=== PATIENT | male | born 1965 | race Two or more races ===

== ENCOUNTER 2023-06-17 11:29 | Outpatient (REF) | payer OTHER, SELFPAY ==
--- NOTE | ~2023-06-17 | XR_ITS ---
EXAMINATION: XR ABDOMEN KUB CLINICAL INDICATION: Pain; question calculus. COMPARISON: CT abdomen and pelvis dated 06/20/2023. TECHNIQUE: 2 AP views of the abdomen and pelvis are submitted. FINDINGS: The bowel gas pattern is normal with no evidence of ileus or obstruction. 2 4 mm calculi are seen at the interpolar right kidney. At the lower pole of the left kidney, a 2.2 x 1.2 cm aggregation of calculi is seen. Of note, imaging is significantly limited by overlapping bowel contents. Multiple pelvic phleboliths are seen. There is no acute osseous abnormality. XR/XR KUB IMPRESSION: Bilateral renal calculi are seen, as detailed.
== END 2023-06-17 11:30 | disposition home or self-care (01) ==
LOC: HO.XRAY 11:29
PROVIDERS: PCP Internal Medicine; Visit Provider Internal Medicine
DX: R10.9 Unspecified abdominal pain (principal)
CPT/HCPCS: 74018

== ENCOUNTER 2023-06-20 11:32 | Emergency (ER) | payer OTHER, SELFPAY ==
--- NOTE | ~2023-06-20 | CT_ITS ---
EXAMINATION: CT ABDOMEN AND PELVIS WITHOUT CONTRAST CLINICAL INFORMATION: Pelvic discomfort. Urinary discomfort. COMPARISON: Abdominal radiograph dated 06/17/2023. TECHNIQUE: Multidetector volumetric imaging was performed from the superior aspect of the liver through the pubic symphysis. Sagittal and coronal reformatted images were obtained on the technologist's workstation. This CT examination was performed using dose optimization techniques as appropriate, variously including the following: *Automated exposure control. *Adjustment of mA and/or kV according to patient size (this includes techniques or standardized protocols for targeted exams where dose is matched to indication/reason for exam; i.e. extremities or head). *Use of iterative reconstruction technique. DLP: 575 mGy-cm FINDINGS: LUNG BASES: The visualized lung bases are unremarkable. LIVER, GALLBLADDER, AND BILIARY TREE: The liver is normal in size, shape, and attenuation. No focal hepatic lesion or biliary ductal dilatation is present. The gallbladder is unremarkable with no evidence of radiopaque gallstones, gallbladder wall thickening, or obvious pericholecystic inflammatory changes. PANCREAS: Unremarkable. SPLEEN: Unremarkable. ADRENAL GLANDS: Right adrenal nodule measuring up to 2.1 x 2.8 x 1.9 cm with areas of macroscopic fat, soft tissue, and calcification. Given calcification, findings are likely benign and no follow-up imaging is recommended. KIDNEYS AND URETERS: The kidneys are normal in size, shape, and attenuation. Multiple bilateral renal stones measuring up to 0.4 cm within the anterior mid/lower pole of the right kidney and 1.6 x 0.8 cm within the midpole of the left kidney. The largest stone measures up to 1362 Hounsfield units and is located approximately 2.7 cm from the posterior axillary line. No ureteral stone. No hydronephrosis or hydroureter. BLADDER: No wall thickening or inflammatory change. Partially distended. GASTROINTESTINAL TRACT: No small or large bowel obstruction. No bowel wall thickening or inflammatory change. Unremarkable appendix. PERITONEAL CAVITY: No intra-abdominal free air or free fluid. ABDOMINAL WALL: No significant hernia is appreciated. LYMPH NODES: No significant lymphadenopathy. VASCULAR: No abdominal aortic dilatation. Unremarkable IVC. PELVIC VISCERA: Severe prostatomegaly with mass effect on the posteroinferior urinary bladder. This measures up to 7.9 cm in craniocaudal dimension. OSSEOUS STRUCTURES: Unremarkable. CT/CT abdomen pelvis wo IV con IMPRESSION: 1. Multiple bilateral renal stones measuring up to 0.4 cm on the right and 1.6 cm on the left. No ureteral stone. No hydronephrosis or hydroureter. Unremarkable urinary bladder. 2. Severe prostatomegaly with mass effect on the posteroinferior urinary bladder. 3. Right adrenal nodule measuring up to 2.8 cm with areas of macroscopic fat, soft tissue, and calcification. Given calcification, findings are likely benign and no follow-up imaging is recommended. Fleischner guidelines were followed.
--- NOTE | 2023-06-20 12:14 | ED.GENADULT ---
HPI - General Adult General Chief complaint: General Medical Stated complaint: Issues using bathroom Time Seen by Provider: 06/20/23 17:51 History of Present Illness HPI narrative: The patient is a 57-year-old male who says that he has had difficulty with urination for about 3 weeks. He feels pain with urination. He has had a weak urinary stream. He has never had difficulty urinating before. He has had no fevers. He denies back pain or flank pain. No penile discharge. No new sexual partners. He had been having constipation and was prescribed lactulose. He had a bowel movement yesterday. The patient has a history of type 2 diabetes. Currently his diabetic medication is only Rybelsus (semaglutide). He says he stopped taking this medication a couple of weeks ago when he started having these urinary symptoms. He says he has been on this medication for some time and it is not clear why he stopped taking it. The patient has had a kidney stone in the past. He does not feel that he has any flank pain similar to his kidney stone pain in the past. He says that he has had a urinary catheter once in his life. This was when he had a stroke about 6 or 7 years ago. He was treated in [place] at that time. No fever, sweats, chills. He has not had any sexual encounters in a long long time. Related Data Allergies Allergy/AdvReac Type Severity Reaction Status Date / Time No Known Allergies Allergy Verified 06/20/23 12:14 Review of Systems Review of Systems: Yes all other systems are reviewed and are negative [facility] Social History Social History Smoked in Last 30 Days: Yes Use of substances other than those prescribed or required for medical reasons: Yes Substance Use Type: Marijuana Substance Use Frequency: Occasionally Advance Directives: No Advance Directives Information Provided: No Physical Exam ED Vital Signs: Vital Signs - 24 hr 06/20/23 12:15 06/20/23 18:44 06/20/23 19:45 Temperature 96.8 F 97.8 F 98.2 F Pulse Rate 72 64 68 Respiratory Rate 18 18 17 Blood Pressure 167/93 H 135/85 115/81 Pulse Oximetry 98 98 97 Oxygen Delivery Method Room Air Room Air Room Air BMI result Body Mass Index 27.8 Const Other: The patient is awake and alert. He does not appear in obvious discomfort or distress. HENMT Other: The face is symmetrical. ?Mucous membranes moist. Eyes Other: Pupils are round equal, conjunctivae are clear, extraocular movements intact Neck Other: No JVD Resp Effort & Inspection: normal respiratory effort Auscultation: clear to auscultation bilaterally Cardio Rate: regular rate Rhythm: regular rhythm Heart sounds: S1 normal heart sound present and S2 normal heart sound present GI Other: The abdomen is soft and nontender. There is no obvious suprapubic tenderness. No significant prostatic tenderness Other: External genitalia unremarkable. Back/Spine/Pelvis Other: No CVA percussion tenderness Skin Other: Skin is dry and unremarkable Neuro Other: The patient is awake, alert, pleasant, cooperative. He seems grossly neurologically intact Extrem Other: No peripheral edema Course Course Course Narrative: This is a rapid medical exam: Additional HPI, ROS, PE not included below will be deferred to primary provider. Patient is a 57-year-old male presenting to the emergency department with complaint of difficulty urinating as well as with bowel movements for the past 3 weeks. Reports intermittent penile/urethral pain not necessarily related to urination. Denies fevers or other abnormal penile discharge. Denies any new sexual partners. Saw PCP and had an x-ray but states PCP has not received the results yet, reports hematuria was found on urinalysis Saturday. PCP prescribed lactulose. Reports last normal BM was yesterday. States pain is worse with sitting. Plan: UA, CT NG urine Medications Administered Discontinued Medications Generic Name Dose Route Start Last Admin Trade Name Freq PRN Reason Stop Dose Admin Sodium Chloride 1,000 mls @ 999 mls/hr 06/20/23 20:15 06/20/23 21:36 Ns IV 06/20/23 21:15 999 mls/hr .Q1H1M BRYAN Administration Phenazopyridine HCl 200 mg 06/20/23 22:27 06/20/23 22:33 Phenazopyridine Hcl 200 Mg Tablet PO 06/20/23 22:28 200 mg ONCE ONE Administration Tamsulosin HCl 0.4 mg 06/20/23 22:27 06/20/23 22:33 Tamsulosin Hcl 0.4 Mg Capsule PO 06/20/23 22:28 0.4 mg ONCE ONE Administration Medical Decision Making Medical Decision Making [facility] Narrative: The patient is a very pleasant 57-year-old with a history of type 2 diabetes who presents with what he describes his 3 weeks of difficulty urinating. He has had no fever, sweats, chills. No nausea or vomiting. No flank pain. He has had no sexual contacts. The patient does not seem toxic or ill. Postvoid residual on bladder scan was 300 mL. Urinalysis shows no signs of infection. His prostatic exam does not suggest prostatitis. His blood work does not suggest any infectious process. I performed a bedside ultrasound that showed a mildly full bladder with what I thought was probably a large prostate. A noncontrast CT scan of the abdomen and pelvis was obtained that showed significant prostatomegaly. I suspect that all of the patient's symptoms are probably related to his prostatomegaly. However I do not feel he is in significant urinary retention and I do not feel a catheter is indicated. The patient will be discharged with a prescription for tamsulosin to see if this eases his symptoms at all and he should follow up with Urology. The patient's blood sugar was 500. I think this is because he says he has not taken his semaglutide for a couple of weeks. He is willing to resume this medication. The patient will therefore be discharged with prescription for tamsulosin and instructions to resume his semaglutide. His blood sugar improved with 1 L of IV saline. His plan of care after fluids was 373. He should follow up with his regular doctor and also he should contact the urology office Lab Data 06/20/23 19:43 06/20/23 19:43 Labs: Lab Results 06/20/23 06/20/23 Range/Units 18:43 19:43 WBC 10.1 (4.8-10.8) X10*3/uL RBC 4.30 L (4.60-5.80) X10*6/uL Hgb 13.0 L (14.0-18.0) g/dl Hct 38.5 L (42.0-52.0) % MCV 89.5 (80.0-98.0) fL MCH 30.2 (27.0-33.0) pg MCHC 33.8 (31.0-36.0) g/dl RDW 13.2 (11.0-16.0) % Plt Count 242 (160-400) X10*3/uL MPV 10.4 (9.4-12.4) fL Immature Gran % (Auto) 0.4 (0.0-0.4) % Neut % (Auto) 62.9 (45-73) % Lymph % (Auto) 27.6 (20-40) % [place] % (Auto) 6.5 (2-11) % Eos % (Auto) 2.0 (0-4) % Baso % (Auto) 0.6 (0-2) % Lymph # (Auto) 2.8 (1.2-4.9) X10*3/uL [place] # (Auto) 0.7 (0.1-1.2) X10*3/uL Eos # (Auto) 0.2 (0.0-0.4) X10*3/uL Baso # (Auto) 0.1 (0.0-0.2) X10*3/uL Abs Immat Gran (auto) 0.04 H (0.00-0.03) X10*3/uL Absolute Neuts (auto) 6.3 (2.0-8.3) x10*3/uL Absolute Nucleated RBC 0.000 (0.0-0.012) X10*3/uL Nucleated RBC % (auto) 0.0 (0.0-0.2) /100WBC Sodium 137 (135-145) mmol/L Potassium 4.2 (3.3-5.1) mmol/L Chloride 102 (96-108) mmol/L Carbon Dioxide 24 (22-29) mmol/L Anion Gap 15 (12-20) BUN 16 (9-16) mg/dL Creatinine 1.60 H (0.5-1.4) mg/dL Estim Creat Clear Calc 59.3 Estimated GFR 45 Random Glucose 501 H* (60-115) mg/dL Calcium 9.9 (8.4-10.2) mg/dL Total Bilirubin 0.3 (0.0-1.0) mg/dL Direct Bilirubin 0.1 (0.0-0.5) mg/dL AST 27 (5-37) U/L ALT 28 (0-40) U/L Alkaline Phosphatase 139 H (39-117) U/L C-Reactive Protein < 0.10 (< or = 0.50) mg/dL Total Protein 6.9 (6.5-8.0) g/dL Albumin 4.0 (3.5-5.0) g/dL Urine Color Yellow Urine Appearance Clear Urine pH 5.5 (5.0-9.0) Ur Specific [place] >= 1.030 H (1.005-1.025) Urine Protein Negative (Neg-Trace) mg/dL Urine Glucose (UA) >=1000 H (Negative) mg/dL Urine Ketones 15 (Negative) mg/dL Urine Blood Negative (Negative) Urine Nitrite Negative (Negative) Ur Leukocyte Esterase Negative (Negative) Urine RBC 0-2 (0-2) /HPF Urine WBC 0-5 (0-5) /HPF Ur Squamous Epith Cells 0-2 (0-2) /HPF Urine Bacteria None Seen (None Seen) Hyaline Casts 0-2 (0-2) /LPF Discharge Plan Discharge Clinical Impression: Dysuria, Enlarged prostate, Hyperglycemia due to type 2 diabetes mellitus Patient Disposition: Home, Self-Care Instructions: Enlarged Prostate (BPH) (ED) Additional Instructions: I believe your symptoms are likely related to enlargement of your prostate gland. There is no suggestion of an infection. I have sent a prescription for medication called tamsulosin (also known as Flomax). Please plan on taking this medication once a day at bedtime. Equally importantly please contact the urology office in the morning for a prompt follow-up appointment to discuss these symptoms further. Also contact your regular doctor to discuss your glucose levels. Please resume your diabetic medication. If at any point your significantly worse please return to the emergency room. Referrals: Srinivasan Trotter MD [Physician] - (Prostatomegaly, prostatism) Ming Redman MD [Primary Care Provider] - (Hyperglycemia, prostatism)
[2023-06-20 12:15] VITALS: BP 167/93; PULSE 72; RESP 18; TEMP 36; O2SAT 98; BMI 27.8
[2023-06-20 18:44] VITALS: BP 135/85; PULSE 64; RESP 18; TEMP 36.6; O2SAT 98
[2023-06-20 18:52] LABS: Appearance Urine Clear; Color Urine Yellow; Glucose Urine UA >=1000 mg/dL (Negative); Leukocyte Esterase Urine Negative (Negative); Nitrite Urine Negative (Negative); PH 5.5 (5.0-9.0); Specific Gravity - Urine >= 1.030 (1.005-1.025); UMIC TRIGGER UACC YES; Urine Blood Negative (Negative); Urine Ketones 15 mg/dL (Negative); Urine Protein Negative (Neg-Trace)
[2023-06-20 19:23] LABS: Bacteria Urine None Seen (None Seen); Hyaline Casts Urine 0-2 /LPF (0-2); RBC Urine 0-2 /HPF (0-2); Squamous Epithelial Cell Urine 0-2 /HPF (0-2); WBC Urine 0-5 /HPF (0-5)
[2023-06-20 19:45] VITALS: BP 115/81; PULSE 68; RESP 17; TEMP 36.8; O2SAT 97
[2023-06-20 19:47] LABS: MANUAL DIFF FLAG NO
[2023-06-20 19:49] LABS: Basophils Absolute Auto 0.1 X10*3/uL (0.0-0.2); Basophils Percent Auto 0.6 % (0-2); Eosinophils Absolute Auto 0.2 X10*3/uL (0.0-0.4); Hematocrit 38.5 % (42.0-52.0); Imm Gran Abs Auto 0.04 X10*3/uL (0.00-0.03); Imm Gran Pct Auto 0.4 % (0.0-0.4); Lymphocytes Absolute Auto 2.8 X10*3/uL (1.2-4.9); Lymphocytes Percent Auto 27.6 % (20-40); Mean Corpuscular HGB Conc 33.8 g/dl (31.0-36.0); Mean Corpuscular Hemoglobin 30.2 pg (27.0-33.0); Mean Corpuscular Volume 89.5 fL (80.0-98.0); Mean Platelet Volume 10.4 fL (9.4-12.4); Monocytes Absolute Auto 0.7 X10*3/uL (0.1-1.2); Monocytes Percent Auto 6.5 % (2-11); Neutrophils Absolute Auto 6.3 x10*3/uL (2.0-8.3); Neutrophils Percent Auto 62.9 % (45-73); Platelet Count 242 X10*3/uL (160-400); Red Cell Distribution Width 13.2 % (11.0-16.0); White Blood Count 10.1 X10*3/uL (4.8-10.8)
[2023-06-20 20:02] LABS: Alanine Aminotransferase 28 U/L (0-40); Alkaline Phosphatase 139 U/L (39-117); Anion Gap 15 (12-20); Aspartate Amino Transferase 27 U/L (5-37); Bilirubin Direct 0.1 mg/dL (0.0-0.5); Bilirubin Total 0.3 mg/dL (0.0-1.0); Blood Urea Nitrogen 16 mg/dL (9-16); C Reactive Protein < 0.10 mg/dL (< or = 0.50); Calcium 9.9 mg/dL (8.4-10.2); Carbon Dioxide 24 mmol/L (22-29); Chloride 102 mmol/L (96-108); Creatinine Clr Calc Pharmacy 59.3; Estimated Glomerular Filt Rate 45; Glucose Random 501 mg/dL (60-115); Potassium 4.2 mmol/L (3.3-5.1); Sodium 137 mmol/L (135-145); Total Protein 6.9 g/dL (6.5-8.0)
[2023-06-20] MEDS: 0.9 % Sodium Chloride 1,000 ML 999 ML IV (21:36)
[2023-06-20] MEDS: Phenazopyridine HCL 200 MG TABLET PO (22:33)
[2023-06-20] MEDS: Tamsulosin HCL 0.4 MG CAPSULE PO (22:33)
[2023-06-20 22:57] LABS: Glucose, Whole Blood 373 mg/dL (60-115)
[2023-06-21 02:47] LABS: CT PCR NOT DETECTED (Not Detect.); NG PCR NOT DETECTED (Not Detect.)
== END 2023-06-20 23:38 | disposition home or self-care (01) ==
PROVIDERS: Registered Nurse Emergency; Emergency Provider Emergency Medicine; PCP Internal Medicine
DX: R30.0 Dysuria (principal); E11.65 Type 2 diabetes mellitus with hyperglycemia; N40.0 Benign prostatic hyperplasia without lower urinary tract symptoms; Z86.73 Personal history of transient ischemic attack (TIA), and cerebral infarction without residual deficits; Z87.442 Personal history of urinary calculi
CPT/HCPCS: 0353U; 36415; 74176; 80048; 80076; 81001; 81003; 82947; 85025; 86140; 99284; 99285

== ENCOUNTER 2023-07-04 18:25 | Emergency (ER) | payer OTHER, SELFPAY ==
--- NOTE | ~2023-07-04 | XR_ITS ---
EXAMINATION: XR ABDOMEN KUB CLINICAL INDICATION: Constipation COMPARISON: None available. TECHNIQUE: AP view of the abdomen. FINDINGS: There are 2 radiopaque calculi in the mid pole left kidney. Several phleboliths are seen in the left pelvis. Scattered stool and gas is seen in colon. No distention. No gross bony abnormality seen. XR/XR KUB IMPRESSION: Left renal calculi. Mild constipation.
--- NOTE | 2023-07-04 18:32 | ED.GENADULT ---
HPI - General Adult General Chief complaint: Abdominal Pain Stated complaint: trouble voiding, constipation. seen 2 weeks ago Time Seen by Provider: 07/04/23 21:37 Source: patient and old records reviewed Mode of arrival: ambulatory Limitations: no limitations History of Present Illness HPI narrative: 58 yo male with PMH of HLD, DM on rybelsus only who notes he has had constipation so his PCP prescribed him lactulose on 06/29 and he has been having BM. He notes after he takes it about 45 min later he feels funny and weak like he is going to pass out. He has been drinking a lot and urinating a lot. He doesn't have a glucometer right now. He notes the lactulose is really sweet and thinks his sugar might be off. MD complaint: weak Onset (ago): day(s) (4) Radiation: non-radiation Severity: moderate Relieving factors: rest Exacerbating factors: medication Associated symptoms: loss of appetite, malaise and other (polyuria, polydipsia) Treatments prior to arrival: none Related Data Previous Rx's Medication Instructions Recorded alcohol swabs (Alcohol Prep Pads) 1 pad topical QID #200 ea 07/05/23 blood sugar diagnostic (FreeStyle #100 ea 07/05/23 Lite Strips) blood-glucose meter (FreeStyle #1 ea 07/05/23 [place] kit) insulin glargine 100 unit/mL (3 10 unit (0.1 mL) subcut QPM #3 mL 07/05/23 mL) subcutaneous pen (Lantus Solostar U-100 Insulin) lancets 28 gauge (FreeStyle #100 ea 07/05/23 Lancets) Allergies Allergy/AdvReac Type Severity Reaction Status Date / Time No Known Allergies Allergy Verified 07/04/23 19:06 Review of Systems Review of Systems: Constitutional : No Fever, No Chills, pos Fatigue ENT/Mouth : No sore throat, No Rhinorrhea Eyes: No Eye Pain, No Swelling, No Redness Cardiovascular : No Chest Pain, No SOB, No Dyspnea on Exertion Respiratory : No Cough, No Sputum Gastrointestinal : No Nausea, No Vomiting, No Diarrhea, No abdominal Pain Genitourinary : No Dysuria, No Urinary Frequency, No Hematuria, Musculoskeletal : No joint pain, No Myalgias, No Joint Swelling Skin : No Skin Lesions, No rash Neuro : pos Weakness, No Numbness, No Dizziness, no Headache Psych : No Anxiety/Panic, No Depression Heme/Lymph: No Bruising, No Bleeding,No Lymphadenopathy Endocrine : pos Polyuria, pos Polydipsia All other systems reviewed and are negative [facility] Past Medical History Attestation statement: The following information was validated with the patient. Source: old records reviewed Medical History (Updated 07/05/23 @ 01:51 by Erendira Cho DO) Hyperlipidemia Diabetes Social History Social History (Updated 07/04/23 @ 22:44 by Erendira Cho DO) Patient Tobacco Use Status: Tobacco use Unknown Substance Use Type: Marijuana Advance Directives: No Advance Directives Information Provided: No Physical Exam ED Vital Signs: Vital Signs - 24 hr 07/04/23 19:03 07/04/23 20:00 07/04/23 22:00 Temperature 98.6 F 98.1 F 98.1 F Pulse Rate 71 70 62 Respiratory Rate 18 16 20 Blood Pressure 132/88 122/77 149/78 H Pulse Oximetry 98 98 99 Oxygen Delivery Method Room Air Room Air Room Air BMI result Body Mass Index 23.0 Appearance: Alert. Oriented X3. No acute distress. Eyes: Pupils equal, round and reactive to light. ENT: Pharynx very dry MM Neck: Normal inspection. Neck supple. CVS: Normal heart rate and rhythm. Pulses normal. Respiratory: No respiratory distress. Breath sounds normal. Abdomen: Soft and nontender. Skin: Skin warm and dry. Normal skin color. Normal skin turgor. Extremities: No lower extremity edema. No calf ttp Neuro: Oriented X 3. No motor deficit. No sensory deficit. Course Course Course Narrative: This is an RME: Additional HPI, ROS, PE not included below will be deferred to primary provider. 58 yo m presents w/ constipation but last BM this am soft stool. Normal urinary habits. Patient just doesnt think his BMS are normal. He was lightheaded earlier but now its better. Not eating well due to bowel movement Seen here last week similar complaints Medications Administered Discontinued Medications Generic Name Dose Route Start Last Admin Trade Name Freq PRN Reason Stop Dose Admin Lactated Ringer's 1,000 mls @ 999 mls/hr 07/04/23 21:45 07/04/23 22:01 Lr IV 07/04/23 22:45 999 mls/hr .Q1H1M BRYAN Administration Lactated Ringer's 1,000 mls @ 999 mls/hr 07/04/23 21:45 07/04/23 22:01 Lr IV 07/04/23 22:45 999 mls/hr .Q1H1M BRYAN Administration Insulin Human Regular 10 unit 07/04/23 21:43 07/04/23 22:01 Insulin Regular, Human 100 Unit/Ml 3 Ml Vial IVPUSH 07/04/23 21:44 10 unit ONCE ONE Administration Insulin Human Regular 2 unit 07/05/23 00:19 07/05/23 01:34 Insulin Regular, Human 100 Unit/Ml 3 Ml Vial IVPUSH 07/05/23 00:20 2 unit ONCE ONE Administration Medical Decision Making Medical Decision Making [facility] Narrative: 58 yo male with DM and HLD who had constipation though it was treated with lactulose now he is having polyuria, polydipsia and feels funny and not himself found to have BS in the 900s with INÉS 2L of IVF ordered, IV insulin. Possible admit vs hydration and DC home. Differential Diagnosis Differential Diagnoses: The differential diagnosis associated with the presentation includes DKA, dehydration, INÉS, lactulose effect Admission/Observation Consideration of admission/observation: Escalation of care including admission/observation considered INÉS will repeat labs and if no better plan to admit will need DKA recheck labs better stable for DC will keep of lactulose and place on lantus 10 units at night and DC with glucometer Lab Data [facility] Lab Attestation statement: I reviewed the patient's lab results. repeat labs normal no DKA gap closed Cr improved. 07/04/23 19:45 07/04/23 23:31 Labs: Lab Results 07/04/23 07/04/23 07/04/23 Range/Units 19:45 21:15 21:18 WBC 10.1 (4.8-10.8) X10*3/uL RBC 4.26 L (4.60-5.80) X10*6/uL Hgb 12.8 L (14.0-18.0) g/dl Hct 38.7 L (42.0-52.0) % MCV 90.8 (80.0-98.0) fL MCH 30.0 (27.0-33.0) pg MCHC 33.1 (31.0-36.0) g/dl RDW 13.3 (11.0-16.0) % Plt Count 269 (160-400) X10*3/uL MPV 11.2 (9.4-12.4) fL Immature Gran % (Auto) 0.4 (0.0-0.4) % Neut % (Auto) 74.9 H (45-73) % Lymph % (Auto) 17.0 L (20-40) % [place] % (Auto) 6.9 (2-11) % Eos % (Auto) 0.3 (0-4) % Baso % (Auto) 0.5 (0-2) % Lymph # (Auto) 1.7 (1.2-4.9) X10*3/uL [place] # (Auto) 0.7 (0.1-1.2) X10*3/uL Eos # (Auto) 0.0 (0.0-0.4) X10*3/uL Baso # (Auto) 0.1 (0.0-0.2) X10*3/uL Abs Immat Gran (auto) 0.04 H (0.00-0.03) X10*3/uL Absolute Neuts (auto) 7.6 (2.0-8.3) x10*3/uL Absolute Nucleated RBC 0.000 (0.0-0.012) X10*3/uL Nucleated RBC % (auto) 0.0 (0.0-0.2) /100WBC Sodium 131 L (135-145) mmol/L Potassium 4.6 (3.3-5.1) mmol/L Chloride 95 L (96-108) mmol/L Carbon Dioxide 20 L (22-29) mmol/L Anion Gap 21 H (12-20) BUN 21 H (9-16) mg/dL Creatinine 2.25 H (0.5-1.4) mg/dL Estim Creat Clear Calc 38.3 Estimated GFR 30 POC Glucose > 600 H* > 600 H* (60-115) mg/dL Random Glucose 902 H* (60-115) mg/dL Calcium 9.7 (8.4-10.2) mg/dL Total Bilirubin 0.4 (0.0-1.0) mg/dL AST 19 (5-37) U/L ALT 31 (0-40) U/L Alkaline Phosphatase 167 H (39-117) U/L Total Protein 7.1 (6.5-8.0) g/dL Albumin 4.2 (3.5-5.0) g/dL Beta-Hydroxybutyrate 3.66 H (0.02-0.27) mmol/L Urine Color Yellow Urine Appearance Clear Urine pH 5.0 (5.0-9.0) Ur Specific [place] >= 1.030 H (1.005-1.025) Urine Protein Negative (Neg-Trace) mg/dL Urine Glucose (UA) >=1000 H (Negative) mg/dL Urine Ketones 15 (Negative) mg/dL Urine Blood Negative (Negative) Urine Nitrite Negative (Negative) Ur Leukocyte Esterase Negative (Negative) Urine RBC 0-2 (0-2) /HPF Urine WBC 0-5 (0-5) /HPF Ur Squamous Epith Cells 0-2 (0-2) /HPF Urine Bacteria None Seen (None Seen) Hyaline Casts 0-2 (0-2) /LPF 07/04/23 07/04/23 07/05/23 Range/Units 22:59 23:31 01:31 WBC (4.8-10.8) X10*3/uL RBC (4.60-5.80) X10*6/uL Hgb (14.0-18.0) g/dl Hct (42.0-52.0) % MCV (80.0-98.0) fL MCH (27.0-33.0) pg MCHC (31.0-36.0) g/dl RDW (11.0-16.0) % Plt Count (160-400) X10*3/uL MPV (9.4-12.4) fL Immature Gran % (Auto) (0.0-0.4) % Neut % (Auto) (45-73) % Lymph % (Auto) (20-40) % [place] % (Auto) (2-11) % Eos % (Auto) (0-4) % Baso % (Auto) (0-2) % Lymph # (Auto) (1.2-4.9) X10*3/uL [place] # (Auto) (0.1-1.2) X10*3/uL Eos # (Auto) (0.0-0.4) X10*3/uL Baso # (Auto) (0.0-0.2) X10*3/uL Abs Immat Gran (auto) (0.00-0.03) X10*3/uL Absolute Neuts (auto) (2.0-8.3) x10*3/uL Absolute Nucleated RBC (0.0-0.012) X10*3/uL Nucleated RBC % (auto) (0.0-0.2) /100WBC Sodium 141 (135-145) mmol/L Potassium 3.8 (3.3-5.1) mmol/L Chloride 104 (96-108) mmol/L Carbon Dioxide 23 (22-29) mmol/L Anion Gap 18 (12-20) BUN 17 H (9-16) mg/dL Creatinine 1.52 H (0.5-1.4) mg/dL Estim Creat Clear Calc 56.7 Estimated GFR 48 POC Glucose 396 H* 303 H (60-115) mg/dL Random Glucose 387 H* (60-115) mg/dL Calcium 9.4 (8.4-10.2) mg/dL Total Bilirubin (0.0-1.0) mg/dL AST (5-37) U/L ALT (0-40) U/L Alkaline Phosphatase (39-117) U/L Total Protein (6.5-8.0) g/dL Albumin (3.5-5.0) g/dL Beta-Hydroxybutyrate (0.02-0.27) mmol/L Urine Color Urine Appearance Urine pH (5.0-9.0) Ur Specific [place] (1.005-1.025) Urine Protein (Neg-Trace) mg/dL Urine Glucose (UA) (Negative) mg/dL Urine Ketones (Negative) mg/dL Urine Blood (Negative) Urine Nitrite (Negative) Ur Leukocyte Esterase (Negative) Urine RBC (0-2) /HPF Urine WBC (0-5) /HPF Ur Squamous Epith Cells (0-2) /HPF Urine Bacteria (None Seen) Hyaline Casts (0-2) /LPF Independent Interpretation I performed an independent interpretation of an: EKG and Plain X-Ray (mild constipation) Interpretation: Rate: 68 Rhythm: NSR [place]: normal Normal P waves. Normal CESAR. Normal QRS complex. ST T wave : normal no [place] qTC: 408 prior studies: no acute ischemia The study has been interpreted contemporaneously by me. . Radiology Impression Discussion of test interpretation with radiology: I have reviewed the radiologist's reading. External Record Review External record reviewed: Inpatient record Prescription Management I considered prescription management with: Other Critical Care Time Critical Care Time Critical Care Time: Yes Total Critical Care Time: 60 Attestation: 2L of IVF repeat labs I attest to this time spent taking care of the patient Discharge Plan Discharge Clinical Impression: INÉS (acute kidney injury), Acute hyperglycemia Patient Disposition: Home, Self-Care Instructions: Acute Kidney Injury (DC), Diabetic Hyperglycemia (ED) Additional Instructions: stop taking lactulose. check blood sugar 3 times a day. return for worsening symptoms. you need to call and see your doctor tomorrow to get a glucometer. you should also be on lantus nightly for blood sugar control return for worsening symptoms or concerns. please see your doctor in the morning. Prescriptions: New (DME) FreeStyle Lite Strips Strip See Rx Instructions .Route Qty: 100 0RF Rx Instructions: three times a day and hour of sleep (DME) blood-glucose meter [FreeStyle [place]] Kit See Rx Instructions .Route Qty: 1 0RF Rx Instructions: for three times a day glucose checks (DME) lancets [FreeStyle Lancets] 28 gauge misc See Rx Instructions .Route Qty: 100 0RF Rx Instructions: As directed four times a day to check sugar alcohol swabs [Alcohol Prep Pads] Pads, Medicated 1 pad topical QID Qty: 200 0RF insulin glargine [Lantus Solostar U-100 Insulin] 100 unit/mL (3 mL) insulin pen 10 unit subcut QPM Qty: 3 0RF
[2023-07-04 19:03] VITALS: BP 132/88; PULSE 71; RESP 18; TEMP 37; O2SAT 98; BMI 23.0
--- NOTE | 2023-07-04 19:41 | MHC.EDTECH ---
Patient brought into triage area,patient bladder scanned and is 288,patient voided prior to scan and a urine sample was obtained and sent to lab,provider was made aware,labs drawn and sent to lab.
[2023-07-04 19:54] LABS: MANUAL DIFF FLAG NO
[2023-07-04 19:57] LABS: Appearance Urine Clear; Color Urine Yellow; Glucose Urine UA >=1000 mg/dL (Negative); Leukocyte Esterase Urine Negative (Negative); Nitrite Urine Negative (Negative); Specific Gravity - Urine >= 1.030 (1.005-1.025); UMIC TRIGGER UACC YES; Urine Blood Negative (Negative); Urine Ketones 15 mg/dL (Negative); Urine Protein Negative (Neg-Trace)
[2023-07-04 19:58] LABS: Basophils Absolute Auto 0.1 X10*3/uL (0.0-0.2); Basophils Percent Auto 0.5 % (0-2); Eosinophils Percent Auto 0.3 % (0-4); Hematocrit 38.7 % (42.0-52.0); Hemoglobin 12.8 g/dl (14.0-18.0); Imm Gran Abs Auto 0.04 X10*3/uL (0.00-0.03); Imm Gran Pct Auto 0.4 % (0.0-0.4); Lymphocytes Absolute Auto 1.7 X10*3/uL (1.2-4.9); Mean Corpuscular HGB Conc 33.1 g/dl (31.0-36.0); Mean Corpuscular Volume 90.8 fL (80.0-98.0); Mean Platelet Volume 11.2 fL (9.4-12.4); Monocytes Absolute Auto 0.7 X10*3/uL (0.1-1.2); Monocytes Percent Auto 6.9 % (2-11); Neutrophils Absolute Auto 7.6 x10*3/uL (2.0-8.3); Neutrophils Percent Auto 74.9 % (45-73); Platelet Count 269 X10*3/uL (160-400); Red Blood Count 4.26 X10*6/uL (4.60-5.80); Red Cell Distribution Width 13.3 % (11.0-16.0); White Blood Count 10.1 X10*3/uL (4.8-10.8)
[2023-07-04 20:00] VITALS: BP 122/77; PULSE 70; RESP 16; TEMP 36.7; O2SAT 98
[2023-07-04 20:44] LABS: Alanine Aminotransferase 31 U/L (0-40); Albumin Level 4.2 g/dL (3.5-5.0); Alkaline Phosphatase 167 U/L (39-117); Anion Gap 21 (12-20); Aspartate Amino Transferase 19 U/L (5-37); Bilirubin Total 0.4 mg/dL (0.0-1.0); Blood Urea Nitrogen 21 mg/dL (9-16); Calcium 9.7 mg/dL (8.4-10.2); Carbon Dioxide 20 mmol/L (22-29); Chloride 95 mmol/L (96-108); Creatinine Clr Calc Pharmacy 38.3; Estimated Glomerular Filt Rate 30; Glucose Random 902 mg/dL (60-115); Potassium 4.6 mmol/L (3.3-5.1); Sodium 131 mmol/L (135-145); Total Protein 7.1 g/dL (6.5-8.0)
[2023-07-04 21:22] LABS: Glucose, Whole Blood > 600 mg/dL (60-115)
[2023-07-04 21:22] LABS: Glucose, Whole Blood > 600 mg/dL (60-115)
[2023-07-04 21:23] LABS: Beta-Hydroxybutyrate 3.66 mmol/L (0.02-0.27)
--- NOTE | 2023-07-04 21:31 | PC.NURSE ---
PT alert and oriented. Reports polyuria, polydipsia, pain with urination for two weeks. States he was seen twow week ago in ED for similar compliants. PT reports his glucose monitor is broken so he has not been checking his blood sugars. He had an endocrinology appointment next week. PT has not been following a diabetic diet. states he has been having ice cream, and alot of juice as of late. Today he consumed: Breakfast- Cup of coffee with sugar, eggs with esmer soup. Lunch: Burrito with ground beef, styles and veggies. Dinner at 4pm- left over esmer soon. Provided PT with education on diabetic diet.
[2023-07-04 21:39] LABS: Bacteria Urine None Seen (None Seen); Hyaline Casts Urine 0-2 /LPF (0-2); Squamous Epithelial Cell Urine 0-2 /HPF (0-2); WBC Urine 0-5 /HPF (0-5)
[2023-07-04 21:45] LABS: RBC Urine 0-2 /HPF (0-2)
--- NOTE | 2023-07-04 21:53 | ECG_ITS ---
Test Reason : ELEVATED POC Blood Pressure : / mmHG Vent. Rate : 068 BPM Atrial Rate : 068 BPM P-R Int : 148 ms QRS Dur : 080 ms QT Int : 384 ms P-R-T Axes : 069 013 034 degrees QTc Int : 408 ms Normal sinus rhythm Normal ECG No previous ECGs available Referred By: Erendira Cho Electronically Signed By:VICKY RANDALL MD
[2023-07-04 22:00] VITALS: BP 149/78; PULSE 62; RESP 20; TEMP 36.7; O2SAT 99
[2023-07-04] MEDS: Lactated Ringers 1,000 ML 999 ML IV ×2 (22:01)
[2023-07-04] MEDS: Insulin Regular, Human 100 UNIT/ML 3 ML VIAL 10 UNIT IVPUSH (22:01)
[2023-07-04 23:03] LABS: Glucose, Whole Blood 396 mg/dL (60-115)
--- NOTE | 2023-07-04 23:34 | MHC.EDTECH ---
ALL LABS ARE DONE AT THIS TIME. PT EXPRESSES NO OTHER NEEDS AT THIS TIME CALL LIGHT WITHIN REACH
[2023-07-05 00:07] LABS: Anion Gap 18 (12-20); Blood Urea Nitrogen 17 mg/dL (9-16); Calcium 9.4 mg/dL (8.4-10.2); Carbon Dioxide 23 mmol/L (22-29); Chloride 104 mmol/L (96-108); Creatinine Clr Calc Pharmacy 56.7; Estimated Glomerular Filt Rate 48; Glucose Random 387 mg/dL (60-115); Potassium 3.8 mmol/L (3.3-5.1); Sodium 141 mmol/L (135-145)
[2023-07-05] MEDS: Insulin Regular, Human 100 UNIT/ML 3 ML VIAL IVPUSH (01:34)
[2023-07-05 01:35] LABS: Glucose, Whole Blood 303 mg/dL (60-115)
[2023-07-05 02:16] VITALS: BP 149/78; PULSE 62; RESP 16; TEMP 37.2; O2SAT 96
== END 2023-07-05 02:28 | disposition home or self-care (01) ==
PROVIDERS: Physician Assistant; Emergency Provider Emergency Medicine; PCP Internal Medicine
DX: E11.65 Type 2 diabetes mellitus with hyperglycemia (principal); R33.9 Retention of urine, unspecified; K59.00 Constipation, unspecified; R94.31 Abnormal electrocardiogram [ECG] [EKG]; Z79.4 Long term (current) use of insulin; Z79.899 Other long term (current) drug therapy
CPT/HCPCS: 36415; 51798; 74018; 80048; 80053; 81001; 81003; 82010; 82947; 85025; 93005; 96374; 96376; 99284; 99285; J7120

== ENCOUNTER → 2023-07-04 21:53 | Outpatient (BNV) | payer OTHER, SELFPAY | PROVIDERS: Emergency Provider Emergency Medicine; PCP Internal Medicine; Visit Provider Internal Medicine Cardiovascular Disease | DX: R73.09 Other abnormal glucose (principal) | CPT/HCPCS: 93010 ==

== ENCOUNTER 2023-07-05 20:53 | Emergency (ER) | payer OTHER, SELFPAY | END 2023-07-05 22:08 | disposition left against medical advice (07) | PROVIDERS: Emergency Provider Emergency Medicine; PCP Internal Medicine | DX: R33.9 Retention of urine, unspecified (principal); Z53.21 Procedure and treatment not carried out due to patient leaving prior to being seen by health care provider ==

== ENCOUNTER 2023-07-12 15:12 | Outpatient (AMB) | payer OTHER, SELFPAY ==
--- NOTE | 2023-07-12 15:19 | A.OFFVIS_ITS ---
Intake Intake Visit Reasons: kidney stones and enlarged prostate. Intake Note: New Patient presents for initial visit for kidney stones and enlarged prostate Urology Medications: none Blood Thinner: none Db2 Dba Required: No Allergies No Known Allergies Allergy (Verified 07/12/23 17:45) Medication List - Last Reconciled 07/12/23 by CJ Davis alcohol swabs (Alcohol Prep Pads) 1 pad topical QID atorvastatin 40 mg PO DAILY blood sugar diagnostic (FreeStyle Lite Strips) three times a day and hour of sleep blood-glucose meter (FreeStyle [place] kit) for three times a day glucose checks finasteride 5 mg PO DAILY 90 days insulin glargine (Lantus Solostar U-100 Insulin) 10 units (0.1 mL) subcut QPM lancets (FreeStyle Lancets) As directed four times a day to check sugar tamsulosin 0.4 mg PO DAILY HPI HPI Comments History of Present Illness Details Luis Manuel is a pleasant 58-year-old male patient of Dr. Redman. He has a past medical history of hyperlipidemia and diabetes. He presents to the office today as a new patient for enlarged prostate, nephrolithiasis, and urinary retention. In discussion with the patient today he reports having seeked [facility] Emergency room services twice in the last month for vani vated blood sugars and ongoing issues with constipation at which time he was noted to be in DKA. He reports despite adequate sugar control he continued to not feel well therefore he seeked emergency room care at [facility] on Tuesday 07/04 at which time he was admitted for 5 days for DKA and urinary retention. He has since had a Hammer catheter placed. He reports being told he had approximately 700-800 mL of urine in his bladder. Discussed at length potential causes for urinary retention. In review of patient's chart it appears CT of the abdomen was ordered and performed during ER visit here at [facility]. Multiple bilateral renal stones measuring up to 4 mm in the right kidney. 1.6 cm left mid pole stone noted. Severe prostatomegaly with mass effect on posteriorinferior urinary bladder. Discussed at length prostatemegaly in correlation to urinary retention and Hammer catheter placement. Discussed attempting voiding trial in approximately 1 month given amount of urine during time of urinary retention. Discussed further intervention regarding nephrolithiasis. Discussed obtaining PSA for further assessment evaluation status post Hammer catheter removal. When asked he denies having had any urinary issues prior to his emergency room visit. He reports being on Flomax since Hammer catheter was inserted. When asked he reports a longstanding history of nephrolithiasis requiring lithotripsy in the past. He otherwise currently denies any bothersome urinary issues or concerns. [facility] Medical History Hyperlipidemia Diabetes Social History Patient Tobacco Use Status: Tobacco use Unknown Substance Use Type: Marijuana Review of Systems Const Reports as per HPI Eyes Reports no additional complaints ENT Reports no additional complaints Card Reports as per HPI Resp Reports no additional complaints GI Reports as per HPI Reports as per HPI Musc Reports no additional complaints Neuro Reports no additional complaints Psych Reports no additional complaints Endo Reports as per HPI Sudeep/Lymph Reports no additional complaints Aller/Immun Reports no additional complaints Physical Exam Const General: cooperative, healthy appearing, comfortable, no acute distress, well developed, alert and awake Orientation/consciousness: patient oriented x3 Limitations: no limitations HEENT Head: Yes normal to inspection, Yes normocephalic and Yes atraumatic Ears: hearing grossly normal bilaterally Eyes General: appearance normal, both eyes and all related structures Neck Neck: Yes normal visual inspection and Yes trachea midline Chest Chest palpation & inspection: normal inspection of the chest Resp Effort & Inspection: normal respiratory effort and able to speak in complete sentences Cardio Rate: regular rate GI Inspection: Yes normal to inspection General: Yes no CVA tenderness Back/Spine/Pelvis Back: no CVA tenderness Skin General skin exam: no rashes or lesions noted Neuro General: patient oriented x3 Extrem General: Yes normal to inspection Psych Appearance: grossly normal and well kempt Mental Status: mental status grossly normal Speech and movement: Normal speech and movement present and Clear speech present Affect: normal affect Attitude: cooperative Thought process: Normal thought process present Thought content: Normal thought content present Insight: Fair insight present (Psych) Judgement: Fair judgement present (Psych) Results Reviewed Results Reviewed: Date of Service: 06/20/23 EXAMINATION: CT ABDOMEN AND PELVIS WITHOUT CONTRAST FINDINGS: LUNG BASES: The visualized lung bases are unremarkable. LIVER, GALLBLADDER, AND BILIARY TREE: The liver is normal in size, shape, and attenuation. No focal hepatic lesion or biliary ductal dilatation is present. The gallbladder is unremarkable with no evidence of radiopaque gallstones, gallbladder wall thickening, or obvious pericholecystic inflammatory changes. PANCREAS: Unremarkable. SPLEEN: Unremarkable. ADRENAL GLANDS: Right adrenal nodule measuring up to 2.1 x 2.8 x 1.9 cm with areas of macroscopic fat, soft tissue, and calcification. Given calcification, findings are likely benign and no follow-up imaging is recommended. KIDNEYS AND URETERS: The kidneys are normal in size, shape, and attenuation. Multiple bilateral renal stones measuring up to 0.4 cm within the anterior mid/lower pole of the right kidney and 1.6 x 0.8 cm within the midpole of the left kidney. The largest stone measures up to 1362 Hounsfield units and is located approximately 2.7 cm from the posterior axillary line. No ureteral stone. No hydronephrosis or hydroureter. BLADDER: No wall thickening or inflammatory change. Partially distended. GASTROINTESTINAL TRACT: No small or large bowel obstruction. No bowel wall thickening or inflammatory change. Unremarkable appendix. PERITONEAL CAVITY: No intra-abdominal free air or free fluid. ABDOMINAL WALL: No significant hernia is appreciated. LYMPH NODES: No significant lymphadenopathy. VASCULAR: No abdominal aortic dilatation. Unremarkable IVC. PELVIC VISCERA: Severe prostatomegaly with mass effect on the posteroinferior urinary bladder. This measures up to 7.9 cm in craniocaudal dimension. OSSEOUS STRUCTURES: Unremarkable. IMPRESSION: 1. Multiple bilateral renal stones measuring up to 0.4 cm on the right and 1.6 cm on the left. No ureteral stone. No hydronephrosis or hydroureter. Unremarkable urinary bladder. 2. Severe prostatomegaly with mass effect on the posteroinferior urinary bladder. 3. Right adrenal nodule measuring up to 2.8 cm with areas of macroscopic fat, soft tissue, and calcification. Given calcification, findings are likely benign and no follow-up imaging is recommended. Assessment & Plan Assessment & Plan (1) Enlarged prostate: Code(s): N40.0 - Benign prostatic hyperplasia without lower urinary tract symptoms (2) Nephrolithiasis: Code(s): N20.0 - Calculus of kidney (3) Urinary retention: Code(s): R33.9 - Retention of urine, unspecified Plan Recent CT results reviewed with the patient today; as noted above. Discussed signing medical release form to obtain ER records for [facility] for continuity of care. Discussed at length potential causes of nephrolithiasis, enlarged prostate, and urinary retention. Discussed follow-up with nursing for in office voiding trial in 2-3 weeks. Discussed follow-up with provider 6 weeks after Hammer removal for further assessment evaluation of PSA PSA ordered Continue Flomax as prescribed. Start finasteride 5 mg daily. Discussed at length further treatment options of nephrolithiasis well as enlarged prostate Discussed left-sided ESWL. Discussed, educated, and instructed on the importance of drinking plenty of water daily. Orders: Orders Prostate Specific Antigen 3 Months N40.0 - Benign prostatic hyperplasia without lower urinary tract symptoms Medications: New finasteride 5 mg PO DAILY 90 days 90 tabs 1RF N40.1 - Benign prostatic hy perplasia with lower urinary tract symptoms, R33.9 - Retention of urine, unspecified Patient Instructions: The patient had an opportunity to ask questions regarding the treatment plan. All questions were answered. Physical exam, labs, and imaging were discussed and reviewed in detail. As well as risks, benefits, and discussion of treatment choices. No major barriers to understanding were identified. The patient expressed understanding and agreement with the above treatment plan. The patient was made aware they should contact our office by phone for worsening of their current condition, the appearance of new symptoms, or with any questions or concerns. Compliance is encouraged with any medications and follow up testing that is ordered. It is a privilege to be allowed the opportunity to participate in? your urological care.? Again, if you have any questions or concerns If you have any questions or concerns please do not hesitate to contact me. The office is [phone]. This note is constructed using voice recognition software. While every effort has been made to ensure accuracy bull gang supervisor errors may have been included. Yours sincerely, CJ Davis Coding Level of Care Code New Pt Level 4 (97768) Diagnoses Enlarged prostate N40.0 Nephrolithiasis N20.0 Urinary retention R33.9
== END 2023-07-12 16:22 | disposition home or self-care (01) ==
PROVIDERS: PCP Internal Medicine; Visit Provider Nurse Practitioner Family
DX: N40.0 Benign prostatic hyperplasia without lower urinary tract symptoms (principal); N20.0 Calculus of kidney; R33.9 Retention of urine, unspecified
CPT/HCPCS: 99204

== ENCOUNTER → 2023-07-12 15:12 | Outpatient (BNVA) | payer OTHER, SELFPAY | PROVIDERS: PCP Internal Medicine; Visit Provider Nurse Practitioner Family | DX: N20.0 Calculus of kidney (principal); N40.1 Benign prostatic hyperplasia with lower urinary tract symptoms; R33.8 Other retention of urine; E11.10 Type 2 diabetes mellitus with ketoacidosis without coma; Z79.899 Other long term (current) drug therapy | CPT/HCPCS: 99202 ==

== ENCOUNTER 2023-07-19 11:40 | Emergency (ER) | payer OTHER, SELFPAY ==
[2023-07-19 11:48] VITALS: BP 135/79; PULSE 93; RESP 16; TEMP 36.5; O2SAT 98; BMI 28.2
--- NOTE | 2023-07-19 11:48 | ED.MALEGU ---
HPI - Male Genitourinary General Chief complaint: Urogenital-Male Stated complaint: blood in urine Time Seen by Provider: 07/19/23 17:50 Source: patient Mode of arrival: ambulatory Limitations: no limitations History of Present Illness HPI Narrative: 58-year-old male history of hyperlipidemia, diabetes mellitus who presents emergency department for evaluation hematuria. The patient states he was unable to urinate and went to [facility] on 07/15/2023 and had a Hammer catheter inserted he states that yesterday he noted blood in his urine as well as small blood clots but no decrease in the amount of urine output. He denied fever, chills, increased fatigue or tiredness. Patient states that his blood sugars have been elevated but he is compliant with his medications. Related Data Home Medications Medication Instructions Recorded Confirmed atorvastatin 40 mg tablet 40 mg PO DAILY 07/12/23 tamsulosin 0.4 mg capsule 0.4 mg PO DAILY 07/12/23 Previous Rx's Medication Instructions Recorded alcohol swabs (Alcohol Prep Pads) 1 pad topical QID #200 ea 07/05/23 blood sugar diagnostic (FreeStyle #100 ea 07/05/23 Lite Strips) blood-glucose meter (FreeStyle #1 ea 07/05/23 [place] kit) insulin glargine 100 unit/mL (3 10 unit (0.1 mL) subcut QPM #3 mL 07/05/23 mL) subcutaneous pen (Lantus Solostar U-100 Insulin) lancets 28 gauge (FreeStyle #100 ea 07/05/23 Lancets) finasteride 5 mg tablet 5 mg PO DAILY 90 days #90 tabs 07/12/23 cefuroxime axetil 250 mg tablet 250 mg PO Q12H 10 days #20 tabs 07/19/23 Allergies Allergy/AdvReac Type Severity Reaction Status Date / Time No Known Allergies Allergy Verified 07/12/23 17:45 Review of Systems Review of Systems: Yes all other systems are reviewed and are negative [facility] Past Medical History [facility] Narrative: Social history: He he does smoke cigarettes, he denies alcohol and drug use. Medical History Hyperlipidemia Diabetes Social History Social History Patient Tobacco Use Status: Tobacco use Unknown Substance Use Type: Marijuana Advance Directives: No Advance Directives Information Provided: Yes Physical Exam Vital Signs: Vital Signs: Last Vital Signs Temp 97.9 F 07/19/23 16:16 Pulse 86 07/19/23 16:16 Resp 18 07/19/23 16:16 BP 120/87 07/19/23 16:16 Pulse Ox 99 07/19/23 16:16 O2 Del Method Room Air 07/19/23 16:16 BMI result Body Mass Index 28.2 Vital signs were normal Exam: General: Awake, alert in no distress Head: Normocephalic, atraumatic EENT: PERRL, Lids normal, sclera normal, conjunctiva normal, nose normal , ears normal, throat without erythema or exudates Neck: Supple, no adenopathy Lung: breath sounds symmetric, no wheezing, rales or rhonchi Chest: symmetric movement, nontender Heart: regular rate and rhythm, normal S1, S2 no murmurs or rubs Abdomen: soft, non-tender, nondistended, normal bowel sounds : Uncircumcised male penis, no lesions, no testicular tenderness, Hammer catheter in place, leg bag has red colored urine Back: no vertebral tenderness, no CVAT Extremities: no deformities, moves all extremities symmetrically Neuro: Awake, alert, oriented, normal speech, cranial nerves intact, moves all extremities symmetrically Psych: Pleasant, cooperative Course Course Course Narrative: This is an RME: Additional HPI, ROS, PE not included below will be deferred to primary provider. Patient is a 58-year-old male who presents emergency department for evaluation of hematuria since yesterday with ?clots, hx nephrolithiasis. has indwelling Hammer catheter that was placed last week due to urinary retention. Plan: Labs, urinalysis Medical Decision Making Medical Decision Making MDM Narrative: 58-year-old male history of hyperlipidemia, diabetes mellitus who presents emergency department for evaluation hematuria, patient has had indwelling Hammer catheter x5 days secondary to urinary retention. Patient did notice small blood clots in his urine as well as hematuria but no decrease in urine output. He has had no concerning systemic symptoms. Vital signs were normal. Abdominal exam was unremarkable, Hammer catheters in tact and is draining red urine. Differential diagnosis: ?Includes but is not limited to urinary tract infection, prostatitis, bladder malignancy, urinary obstruction Following evaluation was ordered: CBC, CMP, urinalysis Patient was initially treated with the following: Cefuroxime 250 mg orally Course: 18:17 My independent interpretation patient's laboratory evaluation as follows: WBC elevated 12,500. Normocytic anemia with an H&H of 12 and 36.5, similar anemia in the past. BUN and creatinine were normal. Glucose elevated 374. Urinalysis revealed red color, positive protein, positive glucose, positive blood, positive leukocyte esterase, negative nitrates. Microscopic revealed greater than 20 RBCs, 21-50 WBCs, 2+ bacteria. Urinalysis and microscopic is consistent with a urinary tract infection I did discuss my findings with the patient at this time I believe this hematuria secondary to acute cystitis with no concerning systemic symptoms. Patient was started on cefuroxime 250 mg q.12 hours times 10 days, he states that his Hammer catheter needs to remain in place for another 2 weeks. Patient was given printed and verbal instructions and discharged home Admission/Observation Consideration of admission/observation: Escalation of care including admission/observation considered Lab Data MDM Lab Attestation statement: I reviewed the patient's lab results. 07/19/23 12:17 07/19/23 12:17 Labs: Lab Results 07/19/23 07/19/23 Range/Units 12:17 16:03 WBC 12.5 H (4.8-10.8) X10*3/uL RBC 3.92 L (4.60-5.80) X10*6/uL Hgb 12.0 L (14.0-18.0) g/dl Hct 36.5 L (42.0-52.0) % MCV 93.1 (80.0-98.0) fL MCH 30.6 (27.0-33.0) pg MCHC 32.9 (31.0-36.0) g/dl RDW 13.8 (11.0-16.0) % Plt Count 272 (160-400) X10*3/uL MPV 9.6 (9.4-12.4) fL Immature Gran % (Auto) 0.5 H (0.0-0.4) % Neut % (Auto) 70.5 (45-73) % Lymph % (Auto) 19.6 L (20-40) % [place] % (Auto) 6.6 (2-11) % Eos % (Auto) 2.2 (0-4) % Baso % (Auto) 0.6 (0-2) % Lymph # (Auto) 2.4 (1.2-4.9) X10*3/uL [place] # (Auto) 0.8 (0.1-1.2) X10*3/uL Eos # (Auto) 0.3 (0.0-0.4) X10*3/uL Baso # (Auto) 0.1 (0.0-0.2) X10*3/uL Abs Immat Gran (auto) 0.06 H (0.00-0.03) X10*3/uL Absolute Neuts (auto) 8.8 H (2.0-8.3) x10*3/uL Absolute Nucleated RBC 0.000 (0.0-0.012) X10*3/uL Nucleated RBC % (auto) 0.0 (0.0-0.2) /100WBC Sodium 134 L (135-145) mmol/L Potassium 4.0 (3.3-5.1) mmol/L Chloride 102 (96-108) mmol/L Carbon Dioxide 25 (22-29) mmol/L Anion Gap 11 L (12-20) BUN 9 (9-16) mg/dL Creatinine 1.22 (0.5-1.4) mg/dL Estim Creat Clear Calc 77.3 Estimated GFR > 60 Random Glucose 374 H* (60-115) mg/dL Calcium 8.9 (8.4-10.2) mg/dL Total Bilirubin 0.2 (0.0-1.0) mg/dL AST 22 (5-37) U/L ALT 32 (0-40) U/L Alkaline Phosphatase 105 (39-117) U/L Total Protein 6.3 L (6.5-8.0) g/dL Albumin 3.5 (3.5-5.0) g/dL Urine Color Red A Urine Appearance Clear Urine pH 5.5 (5.0-9.0) Ur Specific [place] 1.010 (1.005-1.025) Urine Protein 100 (2+) H (Neg-Trace) mg/dL Urine Glucose (UA) >=1000 H (Negative) mg/dL Urine Ketones Negative (Negative) mg/dL Urine Blood Large (3+) H (Negative) Urine Nitrite Negative (Negative) Ur Leukocyte Esterase Small (1+) H (Negative) Urine RBC >20 H (0-2) /HPF Urine WBC 21-50 H (0-5) /HPF Ur Squamous Epith Cells 0-2 (0-2) /HPF Urine Bacteria 2+ (None Seen) Hyaline Casts 0-2 (0-2) /LPF Tests considered The following testing was considered but not selected: CT scan of the abdomen pelvis IV contrast-not done since the patient is not have significant flank pain to suggest that he has renal/ureteral stones as the cause of hematuria Prescription Management I considered prescription management with: Antibiotic Chronic Conditions Patient?s care impacted by: Diabetes Discharge Plan Discharge Clinical Impression: Indwelling Hammer catheter present Hematuria Qualifiers: Hematuria type: gross Qualified Code(s): R31.0 - Gross hematuria Urinary tract infection Qualifiers: Urinary tract infection type: acute cystitis Patient Disposition: Home, Self-Care Instructions: Urinary Tract Infection in Men (ED) Additional Instructions: At this time I believe the blood in urine is caused by a urine infection. You need to keep the Hammer catheter in place until your urology provider thinks that is appropriate to take it out. Take cefuroxime 250 mg pills, 1 pill every 12 hours for 10 days. Please return to the emergency department if you get fever, chills, weakness, fatigue, nausea, vomiting or if you notice that were not draining urine out of your Hammer catheter. Continue taking your medications as prescribed by your providers. Your blood sugar is high so you need to stay on a diabetic diet and take your insulin as prescribed. Increase your fluid intake to prevent dehydration Follow-up with your doctor in 2 days. Please return to the emergency department if your symptoms get worse or if you develop any symptoms that are concerning to you. Prescriptions: New cefuroxime axetil 250 mg tablet 250 mg PO Q12H 10 Days Qty: 20 0RF No Action (DME) FreeStyle Lite Strips Strip See Rx Instructions .Route Qty: 100 0RF Rx Instructions: three times a day and hour of sleep (DME) blood-glucose meter [FreeStyle [place]] Kit See Rx Instructions .Route Qty: 1 0RF Rx Instructions: for three times a day glucose checks (DME) lancets [FreeStyle Lancets] 28 gauge misc See Rx Instructions .Route Qty: 100 0RF Rx Instructions: As directed four times a day to check sugar alcohol swabs [Alcohol Prep Pads] Pads, Medicated 1 pad topical QID Qty: 200 0RF insulin glargine [Lantus Solostar U-100 Insulin] 100 unit/mL (3 mL) insulin pen 10 unit subcut QPM Qty: 3 0RF tamsulosin 0.4 mg capsule 0.4 mg PO DAILY atorvastatin 40 mg tablet 40 mg PO DAILY finasteride 5 mg tablet 5 mg PO DAILY 90 Days Qty: 90 1RF
[2023-07-19 12:23] LABS: MANUAL DIFF FLAG NO
[2023-07-19 12:25] LABS: Basophils Absolute Auto 0.1 X10*3/uL (0.0-0.2); Basophils Percent Auto 0.6 % (0-2); Eosinophils Absolute Auto 0.3 X10*3/uL (0.0-0.4); Eosinophils Percent Auto 2.2 % (0-4); Hematocrit 36.5 % (42.0-52.0); Imm Gran Abs Auto 0.06 X10*3/uL (0.00-0.03); Imm Gran Pct Auto 0.5 % (0.0-0.4); Lymphocytes Absolute Auto 2.4 X10*3/uL (1.2-4.9); Lymphocytes Percent Auto 19.6 % (20-40); Mean Corpuscular HGB Conc 32.9 g/dl (31.0-36.0); Mean Corpuscular Hemoglobin 30.6 pg (27.0-33.0); Mean Corpuscular Volume 93.1 fL (80.0-98.0); Mean Platelet Volume 9.6 fL (9.4-12.4); Monocytes Absolute Auto 0.8 X10*3/uL (0.1-1.2); Monocytes Percent Auto 6.6 % (2-11); Neutrophils Absolute Auto 8.8 x10*3/uL (2.0-8.3); Neutrophils Percent Auto 70.5 % (45-73); Platelet Count 272 X10*3/uL (160-400); Red Blood Count 3.92 X10*6/uL (4.60-5.80); Red Cell Distribution Width 13.8 % (11.0-16.0); White Blood Count 12.5 X10*3/uL (4.8-10.8)
[2023-07-19 12:42] LABS: Alanine Aminotransferase 32 U/L (0-40); Albumin Level 3.5 g/dL (3.5-5.0); Alkaline Phosphatase 105 U/L (39-117); Anion Gap 11 (12-20); Aspartate Amino Transferase 22 U/L (5-37); Bilirubin Total 0.2 mg/dL (0.0-1.0); Blood Urea Nitrogen 9 mg/dL (9-16); Calcium 8.9 mg/dL (8.4-10.2); Carbon Dioxide 25 mmol/L (22-29); Chloride 102 mmol/L (96-108); Creatinine Clr Calc Pharmacy 77.3; Estimated Glomerular Filt Rate > 60; Sodium 134 mmol/L (135-145); Total Protein 6.3 g/dL (6.5-8.0)
[2023-07-19 12:49] LABS: Glucose Random 374 mg/dL (60-115)
[2023-07-19 16:16] VITALS: BP 120/87; PULSE 86; RESP 18; TEMP 36.6; O2SAT 99
[2023-07-19 16:39] LABS: Appearance Urine Clear; Color Urine Red; Glucose Urine UA >=1000 mg/dL (Negative); Leukocyte Esterase Urine Small (1+) (Negative); Nitrite Urine Negative (Negative); PH 5.5 (5.0-9.0); UMIC TRIGGER UACC YES; Urine Blood Large (3+) (Negative); Urine Ketones Negative (Negative); Urine Protein 100 (2+) mg/dL (Neg-Trace)
[2023-07-19 16:41] LABS: Bacteria Urine 2+ (None Seen); Hyaline Casts Urine 0-2 /LPF (0-2); RBC Urine >20 /HPF (0-2); Squamous Epithelial Cell Urine 0-2 /HPF (0-2); UACC Culture Trigger YES; WBC Urine 21-50 /HPF (0-5)
[2023-07-19] MEDS: cefuroxime axetiL 250 MG TABLET PO (18:54)
[2023-07-19 19:07] VITALS: BP 121/81; PULSE 77; RESP 18; TEMP 36.6; O2SAT 99
== END 2023-07-19 19:08 | disposition home or self-care (01) ==
PROVIDERS: Nurse Practitioner Family; Emergency Provider Emergency Medicine Emergency Medical Services
DX: R31.0 Gross hematuria (principal); Z96.0 Presence of urogenital implants; E11.9 Type 2 diabetes mellitus without complications; E78.5 Hyperlipidemia, unspecified
CPT/HCPCS: 36415; 80053; 81001; 85025; 87086; 87088; 87186; 99282; 99283

== ENCOUNTER → 2023-08-06 09:15 | Outpatient (BNVA) | payer OTHER, SELFPAY | PROVIDERS: PCP Internal Medicine; Visit Provider Nurse Practitioner Family | DX: R33.9 Retention of urine, unspecified (principal) | CPT/HCPCS: 51700; 51798 ==

== ENCOUNTER 2023-09-17 09:05 | Outpatient (REF) | payer OTHER, SELFPAY ==
[2023-09-17 11:25] LABS: Prostate Specific Antigen 3.58 ng/mL (<0.05-4.0)
== END 2023-09-17 09:06 | disposition home or self-care (01) ==
LOC: HO.LAB 09:05
PROVIDERS: PCP Internal Medicine; Visit Provider Nurse Practitioner Family
DX: N40.0 Benign prostatic hyperplasia without lower urinary tract symptoms (principal); Z12.5 Encounter for screening for malignant neoplasm of prostate
CPT/HCPCS: 36415; 84153

== ENCOUNTER 2023-09-19 08:48 | Outpatient (AMB) | payer OTHER, SELFPAY ==
--- NOTE | 2023-09-19 09:00 | MHC.OFFVIS ---
Intake Visit Reasons: 6w follow up Intake Note: Patient presents for follow up visit for kidney stones and enlarged prostate Urology Medications: Tamsulosin and Finasteride Blood Thinner: none PVR: 19ml's Elder Counselor Required: No Allergies No Known Allergies Allergy (Verified 09/19/23 09:20) Medication List - Last Reconciled 09/19/23 by CJ Davis alcohol swabs (Alcohol Prep Pads) 1 pad topical QID atorvastatin 40 mg PO DAILY blood sugar diagnostic (FreeStyle Lite Strips) three times a day and hour of sleep blood-glucose meter (FreeStyle Clifford kit) for three times a day glucose checks finasteride 5 mg PO DAILY 90 days insulin aspart U-100 (Novolog FlexPen U-100 Insulin aspart) subcut insulin glargine (Lantus Solostar U-100 Insulin) 10 units (0.1 mL) subcut QPM lancets (FreeStyle Lancets) As directed four times a day to check sugar tamsulosin 0.4 mg PO DAILY HPI Comments Details: Luis Manuel is a pleasant 58-year-old male patient of Dr. Redman. He has a past medical history of hyperlipidemia and diabetes. He presents to the office today for follow-up. Of note, patient was seen approximately 3 months ago as a new patient for enlarged prostate, nephrolithiasis, and urinary retention at which time an in office voiding trial was performed and patient was able to independently void. Recent PSA results reviewed with the patient today. PSA: 09/12 3.6 Discussed at length borderline elevated PSA given patient's age. Discussed continuation of surveillance monitoring verses further workup. He does have a history of nephrolithiasis most recent CT noted multiple bilateral renal stones measuring up to 4 mm in the right kidney. 1.6 cm left mid pole stone noted. Severe prostatomegaly with mass effect on posteriorinferior urinary bladder. Discussed at length prostatemegaly in correlation to urinary retention and borderline elevated PSA given patient's age. He reports since initiation of Flomax he feels he is happy with his current voiding parameters. When asked he reports a longstanding history of nephrolithiasis requiring lithotripsy in the past. Discussed further workup and or surgical intervention regarding nephrolithiasis and borderline elevated PSA however patient discusses moving to [place] within the next 2 weeks. Discussed and stressed the importance of following up with Urology for surveillance monitoring of borderline elevated PSA and nephrolithiasis. All medical records were printed and handed to the patient for continuity of care. In office urinalysis results reviewed with the patient today. PVR 19 mL. He otherwise currently denies any bothersome urinary issues or concerns. [facility] Medical History Hyperlipidemia Diabetes Social History Patient Tobacco Use Status: Tobacco use Unknown Substance Use Type: Marijuana Review of Systems Const Reports as per HPI Eyes Reports no additional complaints ENT Reports no additional complaints Card Reports as per HPI Resp Reports no additional complaints GI Reports as per HPI Reports as per HPI Musc Reports no additional complaints Neuro Reports no additional complaints Psych Reports no additional complaints Endo Reports as per HPI Sudeep/Lymph Reports no additional complaints Aller/Immun Reports no additional complaints Physical Exam Const General: cooperative, healthy appearing, comfortable, no acute distress, well developed, alert and awake Orientation/consciousness: patient oriented x3 Limitations: no limitations HEENT Head: Yes normal to inspection, Yes normocephalic and Yes atraumatic Ears: hearing grossly normal bilaterally Eyes General: appearance normal, both eyes and all related structures Neck Neck: Yes normal visual inspection and Yes trachea midline Chest Chest palpation & inspection: normal inspection of the chest Resp Effort & Inspection: normal respiratory effort and able to speak in complete sentences Cardio Rate: regular rate GI Inspection: Yes normal to inspection General: Yes no CVA tenderness Back/Spine/Pelvis Back: no CVA tenderness Skin General skin exam: no rashes or lesions noted Neuro General: patient oriented x3 Extrem General: Yes normal to inspection Psych Appearance: grossly normal and well kempt Mental Status: mental status grossly normal Speech and movement: Normal speech and movement present and Clear speech present Affect: normal affect Attitude: cooperative Thought process: Normal thought process present Thought content: Normal thought content present Insight: Fair insight present (Psych) Judgement: Fair judgement present (Psych) Office Procedures Post Void Residual Post Residual Void Post Void Residual (PVR): 19 [id number] Void Residual by ultrasound Results AMB Urinalysis, Automated UA Leukoctes 0 Afshin/uL Last Edit by Jamar Zhu on 09/19/23 09:11 UA Nitrite Negative Last Edit by Jamar Zhu on 09/19/23 09:11 UA Urobilinogen 0.2 mg/dL Last Edit by Jamar Zhu on 09/19/23 09:11 UA Protein 0 mg/dL Last Edit by Jamar Zhu on 09/19/23 09:11 UA pH 5.5 Last Edit by Jamar Zhu on 09/19/23 09:11 UA Blood 0 Jhonathan/uL Last Edit by Jamar Zhu on 09/19/23 09:11 UA Specific Fine 1.020 Last Edit by Jamar Zhu on 09/19/23 09:11 UA Ketone Negative Last Edit by Jamar Zhu on 09/19/23 09:11 UA Bilirubin 0 mg/dL Last Edit by Jamar Zhu on 09/19/23 09:11 UA Glucose 0 mg/dL Last Edit by Jamar Zhu on 09/19/23 09:11 Results Reviewed Results Reviewed: Laboratory Last Values Urine pH (Auto) 5.5 09/19/23 09:09 Specific Fine (Auto) 1.020 09/19/23 09:09 Urine Protein (Auto) 0 mg/dL 09/19/23 09:09 Glucose (UA)(Auto) 0 mg/dL 09/19/23 09:09 Urine Ketones (Auto) Negative 09/19/23 09:09 Urine Blood (Auto) 0 Jhonathan/uL 09/19/23 09:09 Urine Nitrite (Auto) Negative 09/19/23 09:09 Urine Bilirubin (Auto) 0 mg/dL 09/19/23 09:09 Urine Urobilinogen (Auto) 0.2 mg/dL 09/19/23 09:09 Leukocyte Esterase (Auto) 0 Afshin/uL 09/19/23 09:09 Assessment & Plan Assessment & Plan (1) Urinary retention: Code(s): R33.9 - Retention of urine, unspecified Category: Medical (2) Enlarged prostate: Code(s): N40.0 - Benign prostatic hyperplasia without lower urinary tract symptoms Category: Medical (3) Nephrolithiasis: Code(s): N20.0 - Calculus of kidney Category: Medical Plan In office urinalysis results reviewed with the patient today; as noted above. PVR 19 mL. Recent PSA results reviewed with the patient today; as noted above. Discussed further treatment options of borderline elevated PSA as well as nephrolithiasis; however patient is moving to [place] within the next 2 weeks. Medical records provided for continuity of care. Discussed, educated, and stressed the importance of following up with Urology to continue monitoring PSA and nephrolithiasis. Discussed, educated, and stressed the importance of drinking plenty of water daily. Discussed, educated, and stressed the importance of managing diabetes for overall health and well-being. Follow-up p.r.n. Orders: Orders AMB Urinalysis Automated Today Z13.9 - Encounter for screening, unspecified AMB Post Void Residual by ultrasound Today R33.9 - Retention of urine, unspecified Patient Instructions: The patient had an opportunity to ask questions regarding the treatment plan. All questions were answered. Physical exam, labs, and imaging were discussed and reviewed in detail. As well as risks, benefits, and discussion of treatment choices. No major barriers to understanding were identified. The patient expressed understanding and agreement with the above treatment plan. The patient was made aware they should contact our office by phone for worsening of their current condition, the appearance of new symptoms, or with any questions or concerns. Compliance is encouraged with any medications and follow up testing that is ordered. It is a privilege to be allowed the opportunity to participate in? your urological care.? Again, if you have any questions or concerns If you have any questions or concerns please do not hesitate to contact me. The office is [phone]. This note is constructed using voice recognition software. While every effort has been made to ensure accuracy manager testing errors may have been included. Yours sincerely, CJ Davis Coding Level of Care Code Est Pt Level 3 (80497) Diagnoses Urinary retention R33.9 Enlarged prostate N40.0 Nephrolithiasis N20.0 CPT Codes Post Residual Void - PVR CPT Code: 55003-Qwdk Void Residual by ultrasound ([id number])
== END 2023-09-19 09:16 | disposition home or self-care (01) ==
PROVIDERS: PCP Internal Medicine; Visit Provider Nurse Practitioner Family
DX: R33.9 Retention of urine, unspecified (principal); N40.0 Benign prostatic hyperplasia without lower urinary tract symptoms; N20.0 Calculus of kidney
CPT/HCPCS: 99213

== ENCOUNTER → 2023-09-19 08:48 | Outpatient (BNVA) | payer OTHER, SELFPAY | PROVIDERS: PCP Internal Medicine; Visit Provider Nurse Practitioner Family | DX: R33.9 Retention of urine, unspecified (principal); N40.0 Benign prostatic hyperplasia without lower urinary tract symptoms; N20.0 Calculus of kidney | CPT/HCPCS: 51798; 81003; 99212 ==